=== PATIENT | male | born 1965 | race Caucasian/White ===

== ENCOUNTER 2022-05-25 16:55 | Emergency (ER) | payer OTHER, SELFPAY ==
[2022-05-25 17:38] VITALS: BP 154/88; PULSE 82; RESP 20; TEMP 36.4; O2SAT 96; BMI 46.1
--- NOTE | 2022-05-25 17:52 | XRR_ITS ---
PROCEDURE INFORMATION: Exam: XR Chest Exam date and time: 05/25/2022 8:20 PM Age: 56 years old Clinical indication: Shortness of breath; Additional info: SOB TECHNIQUE: Imaging protocol: Radiologic exam of the chest. Views: 1 view. COMPARISON: CT chest con [id number] 08/14/2018 2:10 PM FINDINGS: Lungs: Lungs are clear. Pleural spaces: Unremarkable. No pleural effusion. No pneumothorax. Heart/Mediastinum: Prominent right hilum. Possible mass or lymphadenopathy. Left hilum is normal. Heart size is normal. Bones/joints: Bones are unremarkable. XR/XR chest 1V portable [id number] IMPRESSION: 1. No pulmonary consolidation. 2. Prominent right hilum. Possible mass or lymphadenopathy. Recommend contrast-enhanced chest CT.
[2022-05-25 18:27] LABS: Basophils % 0.2 %; Eosinophils % 0.2 %; Hematocrit 42.7 % (42.0-52.0); Hemoglobin 13.6 g/dL (11.7-16.6); Lymphocytes # 1.5 10^3/uL (0.8-4.8); Lymphocytes % 15.7 %; Mean Corpuscular HGB Conc 31.9 g/dL (30.0-36.0); Mean Corpuscular Hemoglobin 29.1 pg (28.0-34.0); Mean Corpuscular Volume 91.2 fl (80-94); Mean Platelet Volume 8.6 fL (7.4-10.4); Monocytes # 0.5 10^3/uL (0.2-0.9); Monocytes % 5.2 %; Neutrophils # 7.64 10^3/uL (1.8-7.7); Neutrophils % 78.2 %; Nucleated Red Blood Cells % 0 %; Platelet Count 456 10^3/cmm (130-400); Red Blood Count 4.68 10^6/uL (4.1-5.3); Red Cell Distribution Width 12.7 % (12.1-15.1); White Blood Count 9.8 10^3/uL (4.0-10.0)
[2022-05-25 18:37] LABS: INR 1.05 (0.8-1.2)
[2022-05-25 18:39] LABS: D Dimer 2.29 ug/mIFEU (0-0.59)
[2022-05-25 18:53] LABS: Anion Gap 15.8 (5-19); Blood Urea Nitrogen 14 mg/dL (6-20); Calcium 9.7 mg/dL (8.5-10.5); Carbon Dioxide 27 mmol/L (22-29); Chloride 101 mmol/L (98-107); Glomerular Filtration Rate 100.7 mL/min (90-130); Glucose 123 mg/dL (65-115); NT Pro B Type Natriuretic Pept 15 pg/mL (0-125); Osmolality Calculated 292 mOsm/kg (285-295); Potassium 3.8 mmol/L (3.5-5.1); Sodium 140 mmol/L (136-145)
--- NOTE | 2022-05-25 20:35 | CTR_ITS ---
PROCEDURE INFORMATION: Exam: CTA Chest With Contrast Exam date and time: 05/25/2022 9:13 PM Age: 56 years old Clinical indication: Shortness of breath; Additional info: SOB, S/P covid 3 weeks ago TECHNIQUE: Imaging protocol: Computed tomographic angiography of the chest with contrast. 3D rendering (Not supervised by radiologist): MIP and/or 3D reconstructed images were created by the technologist. Radiation optimization: All CT scans at this facility use at least one of these dose optimization techniques: automated exposure control; mA and/or kV adjustment per patient size (includes targeted exams where dose is matched to clinical indication); or iterative reconstruction. Contrast material: OMNIPAQUE; Contrast volume: 100 ml; Contrast route: INTRAVENOUS (IV); COMPARISON: CT chest wo con [id number] 08/14/2018 2:10 PM RADIATION DOSE METRICS: Total DLP (mGy-cm): 555.97 FINDINGS: Pulmonary arteries: The pulmonary arteries are adequately opacified for evaluation to the subsegmental level. There is no filling defect to suggest embolism. Aorta: The aorta is unremarkable. There is no aneurysm. Lungs: There is a noncalcified pulmonary nodule in the right lower lobe measuring 2.8 x 2.2 cm. The nodule measured 6 mm on 08/14/2018. There is a new nodule in the right lower lobe measuring 7 mm on series 5, image 42. There are scattered nodules in the right upper lung. A right upper lobe nodule on series 5, image 19 measures 11 mm diameter. There is no consolidation. There is dependent atelectasis in the left lower lobe. No pulmonary nodule on the left. Pleural spaces: There is no pleural effusion or pneumothorax. Heart: Heart size is normal. There is no pericardial effusion. Lymph nodes: Enlarged right hilar and subcarinal lymph nodes. A conglomerate lymph node mass in the right hilum measures 4.6 x 3.1 cm on series 7, image 248. A subcarinal lymph node measures 5.0 x 3.6 cm. Diaphragm: There is a large left posterior diaphragmatic hernia containing fat. Intraperitoneal space: Visible structures in the upper abdomen are unremarkable. Bones/joints: Bones are unremarkable. Soft tissues: The extrathoracic soft tissues are unremarkable. CT/CT angio chest PE protcl [id number] IMPRESSION: 1. Multiple right pulmonary nodules are most likely neoplastic. Most of the nodules are new. There is a nodule in the right lower lobe which is markedly increased in size since 2018. Highly suspicious nodule(s). Consider non-emergent PET/CT, or tissue sampling.(Reference: Camron) 2. Right hilar and subcarinal lymphadenopathy. 3. No pulmonary embolism. 4. Incidental findings above. REFERENCES: Camron Husain, et al. Guidelines for Management of Incidental Pulmonary Nodules Detected on CT Images: From the Fleischner Society 2017. Radiology. 2017;284(1):228-243.
--- NOTE | 2022-05-25 20:50 | ED_ITS ---
HPI - SOB/Dyspnea General: Chief Complaint: Shortness of Breath/Dyspnea Stated Complaint: Abnormal labs, Low D-Dimer? Time Seen by Provider: 05/25/22 20:34 Source: patient Mode of arrival: ambulatory Limitations: no limitations History of Present Illness: HPI Narrative: 56-year-old male states he had COVID 2 to 3 weeks ago he states he is continue have some shortness of breath he saw his PCP a few days ago they did blood work they called him today to tell him his D-dimer was elevated and had him come to the ER to have a CT angio he states he had some mild dyspnea denies any pain currently denies any worsening improving factors. Associated symptoms: Reports chest pain; Deny abdominal pain, fever(s), nausea or vomiting Review of Systems Const: Denies: fever(s), chills, body aches or change in appetite Eyes: Denies: blurry vision or eye discomfort ENMT: Denies: throat pain or dental pain Card: Reports: chest pain Resp: Reports: dyspnea GI: Denies: abdominal pain, nausea, vomiting or diarrhea : Denies: dysuria Musc: Denies: neck pain or back pain Skin/Breast: Denies: rash Neuro: Denies: headache(s) Psych: Denies: depression Anderson/Lymph: Denies: easy bruising All/Imm: Denies: urticaria PFSH ED PFSH: Medical History (Updated 05/25/22 @ 21:55 by Julisa Kaufman MD) Hypertension Social History (Updated 05/25/22 @ 20:51 by Julisa Kaufman MD) Substance/Drug Use: never Physical Exam Const: COMMON NORMALS: no acute distress, patient oriented x3 and healthy appearing HENMT: COMMON NORMALS: normocephalic and atraumatic HEAD & SCALP: normocephalic and atraumatic Eye: COMMON NORMALS: Equal, round and reactive pupils present and EOMs intact bilaterally PUPIL: Yes Equal, round and reactive pupils present Neck/C-Spine: COMMON NORMALS: full ROM and supple Chest: COMMONS NORMALS: normal inspection of the chest and normal palpation of entire chest wall Resp: COMMON NORMALS: normal respiratory effort, No retractions, No use of accessory muscles and clear to auscultation bilaterally AUSCULTATION: clear to auscultation bilaterally Cardio: COMMON NORMALS: regular rate, regular rhythm and No murmurs present (C ardio) RATE: regular rate RHYTHM: regular rhythm GI: COMMON NORMALS: Normal to inspection, nondistended, normoactive bowel sounds present, Soft to palpation, non-tender and no masses PALPATION: Yes Soft to palpation Extremity: COMMON NORMALS: normal to inspection and full ROM Neuro: COMMON NORMALS: patient oriented x3, moves all extremities and no focal motor deficits Psych: COMMON NORMALS: mental status grossly normal, Normal thought process present and cooperative THOUGHT PROCESS: Normal thought process present Skin: COMMON NORMALS: no rashes or lesions noted and no wounds GENERAL SKIN EXAM: no rashes or lesions noted Course Vital Signs: Vital signs: Vital Signs Temperature 97.5 F L 05/25/22 17:38 Pulse Rate 82 05/25/22 17:38 Respiratory Rate 20 H 05/25/22 17:38 Blood Pressure 154/88 05/25/22 17:38 Pulse Oximetry 96 05/25/22 17:38 Oxygen Delivery Me thod 05/25/22 17:38 MDM - SOB/Dyspnea Medical Decision Making Patient presents here with dyspnea his CT showed no signs of PE he does have a lung nodules with concerns for metastatic cancer did inform him of this we will get him follow-up with pulmonology he is well-appearing here otherwise he is return if worsening. Lab Data : 05/25/22 18:16 05/25/22 18:16 Labs/Radiology: Radiology Impressions Chest X-Ray 05/25/22 17:52 IMPRESSION: 1. No pulmonary consolidation. 2. Prominent right hilum. Possible mass or lymphadenopathy. Recommend contrast-enhanced chest CT. Chest CTA 05/25/22 20:35 IMPRESSION: 1. Multiple right pulmonary nodules are most likely neoplastic. Most of the nodules are new. There is a nodule in the right lower lobe which is markedly increased in size since 2018. Highly suspicious nodule(s). Consider non-emergent PET/CT, or tissue sampling.(Reference: Camron) 2. Right hilar and subcarinal lymphadenopathy. 3. No pulmonary embolism. 4. Incidental findings above. REFERENCES: Camron Husain, et al. Guidelines for Management of Incidental Pulmonary Nodules Detected on CT Images: From the Fleischner Society 2017. Radiology. 2017;284(1):228-243. Laboratory Results WBC 9.8 10^3/uL (4.0-10.0) 05/25/22 18:16 RBC 4.68 10^6/uL (4.1-5.3) 05/25/22 18:16 Hgb 13.6 g/dL (11.7-16.6) 05/25/22 18:16 Hct 42.7 % (42.0-52.0) 05/25/22 18:16 MCV 91.2 fl (80-94) 05/25/22 18:16 MCH 29.1 pg (28.0-34.0) 05/25/22 18:16 MCHC 31.9 g/dL (30.0-36.0) 05/25/22 18:16 RDW 12.7 % (12.1-15.1) 05/25/22 18:16 Plt Count 456 10^3/cmm (130-400) H 05/25/22 18:16 MPV 8.6 fL (7.4-10.4) 05/25/22 18:16 Neut % (Auto) 78.2 % 05/25/22 18:16 Lymph % (Auto) 15.7 % 05/25/22 18:16 Spink % (Auto) 5.2 % 05/25/22 18:16 Eos % (Auto) 0.2 % 05/25/22 18:16 Baso % (Auto) 0.2 % 05/25/22 18:16 Neut # (Auto) 7.64 10^3/uL (1.8-7.7) 05/25/22 18:16 Lymph # (Auto) 1.5 10^3/uL (0.8-4.8) 05/25/22 18:16 Spink # (Auto) 0.5 10^3/uL (0.2-0.9) 05/25/22 18:16 Eos # (Auto) 0.0 10^3/uL (0.0-0.8) 05/25/22 18:16 Baso # (Auto) 0.0 10^3/uL (0.0-0.1) 05/25/22 18:16 Nucleated RBC % (auto) 0 % 05/25/22 18:16 Nucleated RBCs # 0.0 /100WBC 05/25/22 18:16 PT 14.00 SECONDS (12.1-14.9) 05/25/22 18:16 INR 1.05 (0.8-1.2) 05/25/22 18:16 D-Dimer 2.29 ug/mIFEU (0-0.59) H 05/25/22 18:16 Sodium 140 mmol/L (136-145) 05/25/22 18:16 Potassium 3.8 mmol/L (3.5-5.1) 05/25/22 18:16 Chloride 101 mmol/L (98-107) 05/25/22 18:16 Carbon Dioxide 27 mmol/L (22-29) 05/25/22 18:16 Anion Gap 15.8 (5-19) 05/25/22 18:16 BUN 14 mg/dL (6-20) 05/25/22 18:16 Creatinine 0.8 mg/dL (0.7-1.2) 05/25/22 18:16 GFR Calculation 100.7 mL/min (90-130) 05/25/22 18:16 Glucose 123 mg/dL (65-115) H 05/25/22 18:16 Calculated Osmolality 292 mOsm/kg (285-295) 05/25/22 18:16 Calcium 9.7 mg/dL (8.5-10.5) 05/25/22 18:16 NT-Pro-B Natriuret Pep 15 pg/mL (0-125) 05/25/22 18:16 Discharge Plan Discharge Patient Disposition: Home Clinical Impression: Shortness of breath, Pulmonary nodule Prescriptions: No Action metoprolol tartrate 25 mg tablet 12.5 mg PO BID Qty: 30 0RF Discharge Orders: Discharge ED (Routine); Ordered 05/25/22 Ordered By: Julisa Kaufman Referrals: Mary Hinton MD [Physician] - 1-3 days Marquis Reeves DO [Primary Care Provider] - Discharge Diet: Advance as tolerated Discharge Activity: Resume usual activity Coding Level of Care Code ED Cardiopulmonary Technologist for Chg Fwd Exam Comprehensive
[2022-05-25] MEDS: iohexol 350 mg/mL 100 mL Btl IV (21:24)
[2022-05-25 22:09] VITALS: BP 157/93; PULSE 63; RESP 18; O2SAT 98
--- NOTE | 2022-05-26 10:06 | DCPLANNER ---
Addendum entered by Miriam Flynn 06/07/22 15:43: Patient had a follow up appointment scheduled for 05.29.22 with pulmonology - patient did attend appointment. Original Note: cytology laboratory manager had message to schedule a follow up appointment for patient with pulmonology. cytology laboratory manager sent patients information to the front office staff at [facility]. Patients information will be printed and reviewed. Clinic will call patient with appointment information.
== END 2022-05-25 22:10 | disposition home or self-care (01) ==
PROVIDERS: Family Medicine; Emergency Provider Emergency Medicine; PCP Internal Medicine
DX: R06.02 Shortness of breath (principal); R91.1 Solitary pulmonary nodule; I10 Essential (primary) hypertension
CPT/HCPCS: 36415; 71045; 71275; 80048; 83880; 85025; 85378; 85610; 99285; Q9967

== ENCOUNTER 2022-05-30 07:55 | Day surgery (SDC) | payer OTHER, SELFPAY ==
[2022-05-29 12:18] VITALS: BMI 46.1
[2022-05-30] VITALS (9 sets, daily range): BP systolic 106–146; BP diastolic 59–93; PULSE 63–75; RESP 16–18; TEMP 36.1–36.6; O2SAT 94–100
[2022-05-30] MEDS: sodium chloride 0.9% 1,000 ML 30 ML IV (08:56)
--- NOTE | 2022-05-30 09:34 | ANES.PREANE2 ---
Pre-Anesthetic Assessment Height/Weight: Height 1.85 m Weight 158.757 kg Temp Pulse Resp BP Pulse Ox O2 Del Method 97 F L 75 18 146/93 96 05/30/22 08:26 05/30/22 08:26 05/30/22 08:26 05/30/22 08:26 05/30/22 08:26 05/30/22 08:26 Preop Diagnosis: Suspected lung cancer Operation Date: 05/30/22 09:25 Proposed Procedures p Bronchoscopy [id number],R91.8(Not Applicable) - Mary Hinton MD s Ebus(Not Applicable) - Mary Hinton MD Familial anesthetic complications: None Last intake: Intake Last Liquid Date 05/29/22 Last Liquid Time 23:30 Last Solid Date 05/29/22 Last Solid Time 05:30 Social Tobacco and No alcohol Exam alert, oriented x 3, clear to auscultation bilaterally and regular rate & rhythm Airway Mallampati: Class IV Dentition: chipped Pulmonary Shortness of Breath CV/HEM Hypertension Metabolic Morbid Obesity Anesthetic Plan ASA status: 2 Anesthesia: General Risk of > 500 ml blood loss (7ml/kg in children): No Medications/Allergies Home Medications Medication Instructions Recorded Confirmed Last Taken Type metoprolol tartrate 25 mg tablet 12.5 mg PO BID #30 tabs 01/18/21 05/29/22 05/30/22 Rx hydrocodone 5 mg-acetaminophen 325 1 tab PO Q8H PRN Pain 05/29/22 05/29/22 05/30/22 History mg tablet Allergies Allergy/AdvReac Type Severity Reaction Status Date / Time No Known Allergies Allergy Verified 05/29/22 12:13 Current Medications Generic Name Dose Route Start Last Admin Trade Name Freq PRN Reason Stop Dose Admin Sodium Chloride 1,000 mls @ 30 mls/hr 05/30/22 08:15 05/30/22 08:56 Sodium Chloride 0.9% IV 05/31/22 08:14 30 mls/hr .Q24H STEPHANE Administration PFSH Anesthesia Medical History Hypertension Surgical History Previous back surgery Social History Smoking and tobacco status: never smoked Data Anesthesia Cardiac Studies: No Data to Display
--- NOTE | 2022-05-30 09:49 | W.PM.OPSUD ---
Surgery/Procedure H&P Update DATE OF PROCEDURE: May 30, 2022 DATE H&P PERFORMED: 05/29/22 PREOP DIAGNOSIS: Suspected lung cancer PRIMARY INDICATION FOR PROCEDURE: Suspected lung cancer PLANNED PROCEDURE: Bronchoscopy with inspection of the airway, possible endobronchial biopsy, bronchoalveolar lavage, endobronchial ultrasound guided transbronchial needle aspiration of lymph nodes and control of bleeding. Operation Date: 05/30/22 09:25 Proposed Procedures p Bronchoscopy [id number],R91.8(Not Applicable) - Mary Hinton MD s Ebus(Not Applicable) - Mary Hinton MD
[2022-05-30] MEDS: lidocaine 1% INJ 20 mL XX (10:14)
--- NOTE | 2022-05-30 11:41 | P.OP_ITS ---
Operative Report Date of procedure: May 30, 2022 Pre-op diagnosis: Preop Diagnosis Suspected lung cancer Post-op diagnosis: Same Brief History: This is a 56-year-old gentleman was recently identified to have multiple pulmonary nodules and mediastinal hilar lymphadenopathy. He is coming in for bronchoscopic evaluation. Procedure: Name of the procedure: Bronchoscopy with inspection of the airway, endobronchial ultrasound-guided transbronchial needle aspiration of lymph nodes and control of bleeding. Indication: Pulmonary nodule, mediastinal and hilar lymphadenopathy Anesthesia: General anesthesia. Local anesthesia: The vocal cords, trachea, chase in the right and left mainstem bronchi were anesthetized with 1% lidocaine, 7 mL. Description of the procedure: The procedure was explained to the patient and the consent was obtained. The patient was brought to the OR. The patient underwent laryngeal mask airway placement for general anesthesia. Following induction of general anesthesia, the bronchoscope was advanced through the ET tube. The laryngeal inlet was edematous. The vocal cords were normal. The vocal cords were anesthetized with 1% lidocaine. 3 mL of lidocaine was used. Bronchoscope was introduced through the vocal cords under direct visualization. The upper and lower trachea are normal. The trachea, chase and right and left mainstem bronchi are anesthetized with 1% lidocaine. A total of 4 mL was used. The chase was splayed. In a systematic manner bilateral bronchial tree was then examined. The bronchoscope was advanced into the left mainstem bronchus. The left upper lobe, lingula and left lower lobe bronchi were examined up to the third subsegmental level and no abnormalities were identified. The bronchoscope was then introduced into the right mainstem bronchus. The right upper lobe, right middle lobe and right lower lobe bronchi were examined up to the third subsegmental level and no abnormalities were identified. There was mucus throughout the airways. The endobronchial ultrasound was introduced through the LMA. Significant mediastinal and hilar lymphadenopathy was identified with the ultrasound. Fine- needle aspiration was performed from station 7 lymph node. Samples: 1. The transbronchial biopsies are sent for histopathology. Additionally it was sent for RPMI. Complications: There was no immediate complications.
--- NOTE | 2022-05-30 12:50 | ANE.PACU2 ---
Inpatient post-anesthesia follow up: Airway intact: Yes Vital signs: Temperature 97.6 F Pulse Rate 70 Respiratory Rate 16 Blood Pressure 111/65 Pulse Oximetry 97 Oxygen Delivery Me thod Room Air Oxygen Flow Rate Fraction of Inspir ed Oxygen Hydration adequate: Yes Nausea and vomiting: No Pain level: 1 Mental status: Baseline
[2022-05-31 11:09] LABS: Leukemia Profile (BBPL) See Report; Lymphoma Profile (BBPL) See Report
[2022-06-06 08:16] LABS: PD-L1 (Clone 22C3) by IHC BBPL See Report
[2022-06-13 06:56] LABS: BRAF PCR Mutation See Report
== END 2022-05-30 11:45 | disposition home or self-care (01) ==
PROVIDERS: PCP Internal Medicine; Visit Provider Internal Medicine Critical Care Medicine
PROC: 0BJ08ZZ Inspection of Tracheobronchial Tree, Via Natural or Artificial Opening Endoscopic (ICD-10-PCS; CPT 31622; principal; 2022-05-30 09:15)
PROC: BB4BZZZ Ultrasonography of Pleura (ICD-10-PCS; 2022-05-30 09:15)
DX: C34.90 Malignant neoplasm of unspecified part of unspecified bronchus or lung (principal); I10 Essential (primary) hypertension; E66.01 Morbid (severe) obesity due to excess calories; Z68.42 Body mass index [BMI] 45.0-49.9, adult
CPT/HCPCS: 31652; 80503; 81210; 88184; 88185; 88305; 88341; 88342; J2704; J3010; J7030

== ENCOUNTER 2022-06-16 08:30 | Oncology outpatient (recurring) (ONCR) | payer OTHER, SELFPAY | END 2022-06-19 23:59 | disposition home or self-care (01) | PROVIDERS: PCP Internal Medicine; Visit Provider Internal Medicine Medical Oncology | DX: C43.9 Malignant melanoma of skin, unspecified (principal) | CPT/HCPCS: 36415 ==

== ENCOUNTER 2022-06-26 10:18 | Day surgery (SDC) | payer OTHER, SELFPAY ==
[2022-06-23 15:32] VITALS: BMI 46.1
[2022-06-26] VITALS (8 sets, daily range): BP systolic 127–138; BP diastolic 71–87; PULSE 84–99; RESP 17–18; TEMP 36.8–37.4; O2SAT 93–99
--- NOTE | 2022-06-26 | SCC_ITS ---
Procedure done: 1. Placement of PowerPort via right internal jugular vein 2. Fluoroscopic guidance and interpretation for placement of catheter 3. Ultrasound guidance to access the right internal jugular vein 38 seconds of fluoroscopic guidance, for a cumulative dose of 17.2 mGy, was provided to Dr. Wright by the radiology department. C-arm images of the chest were saved for the patient's permanent record. [facility]
--- NOTE | 2022-06-26 10:34 | SC_ITS ---
WS: [id number] INTRAOPERATIVE TECHNIQUE: 4 Spot fluoroscopic images for intraoperative purposes. FLUOROSCOPY TIME: 37.5 seconds CLINICAL INFORMATION: Powerport Placement COMPARISON: None. FINDINGS: RIGHT Port-A-Cath with tip in mid to distal SVC. No visualized pneumothorax. SC/C-arm FL for CVA [id number] IMPRESSION: Images obtained for intraoperative purposes.
[2022-06-26] MEDS: sodium chloride 0.9% 1,000 ML 30 ML IV (10:59)
--- NOTE | 2022-06-26 11:54 | W.PM.OPSUD ---
Surgery/Procedure H&P Update DATE OF PROCEDURE: June 26, 2022 DATE H&P PERFORMED: 06/22/22 H&P UPDATE INFORMATION: I have reviewed H&P completed within last 30 days, I have examined patient prior to procedure and No changes to prior documentation PREOP DIAGNOSIS: Metastatic melanoma PRIMARY INDICATION FOR PROCEDURE: The same PLANNED PROCEDURE: Operation Date: 06/26/22 12:00 Proposed Procedures p Portacath Placement [id number],C43.9(Not Applicable) - Dylon Wright MD
--- NOTE | 2022-06-26 12:02 | ANES.PREANE2 ---
Pre-Anesthetic Assessment Height/Weight: Height 1.85 m Weight 158.757 kg Temp Pulse Resp BP Pulse Ox O2 Del Method 98.8 F 84 18 138/77 98 06/26/22 10:43 06/26/22 10:43 06/26/22 10:43 06/26/22 10:43 06/26/22 10:43 06/26/22 10:44 Preop Diagnosis: Metastatic melanoma Operation Date: 06/26/22 12:00 Proposed Procedures p Portacath Placement [id number],C43.9(Not Applicable) - Dylon Wright MD Familial anesthetic complications: none Was Beta Zina taken within 24 hours: N/A Was Clonidine taken within 24 hours: N/A Last intake: Intake Last Liquid Date 06/25/22 Last Liquid Time 22:30 Last Solid Date 06/25/22 Last Solid Time 12:00 Last Intake: 22:30 Social No alcohol and No tobacco Exam alert, oriented x 3, clear to auscultation bilaterally and regular rate & rhythm Airway Submandibular: within normal limits Cervical ROM: within normal limits Mallampati: Class III Dentition: full (loose lower front) Pulmonary Exertional Dyspnea lung CA CV/HEM Hypertension None reported Hepatic None reported GI Gastroesophageal Reflux Disease (controlled) Metabolic Morbid Obesity Musc/skel Lower Back Pain and Osteoarthritis/DJD Neuropsych None reported Anesthetic Plan ASA status: 3 Anesthesia: MAC Risk of > 500 ml blood loss (7ml/kg in children): No Medications/Allergies Home Medications Medication Instructions Recorded Confirmed Last Taken Type hydrocodone 5 mg-acetaminophen 325 1 tab PO Q8H PRN Pain 05/29/22 06/26/22 06/26/22 History mg tablet olmesartan 40 1 tab PO DAILY 05/30/22 06/26/22 06/25/22 History mg-hydrochlorothiazide 25 mg tablet (Benicar HCT) pantoprazole 20 mg tablet,delayed 20 mg PO DAILY 06/22/22 06/23/22 06/26/22 History release Allergies Allergy/AdvReac Type Severity Reaction Status Date / Time No Known Allergies Allergy Verified 06/22/22 13:03 Current Medications Generic Name Dose Route Start Last Admin Trade Name Freq PRN Reason Stop Dose Admin Sodium Chloride 1,000 mls @ 30 mls/hr 06/26/22 10:45 06/26/22 10:59 Sodium Chloride 0.9% IV 06/27/22 10:44 30 mls/hr .Q24H STEPHANE Administration PFSH Anesthesia Medical History Bronchitis Degenerative joint disease of spine Hypertension Metastatic melanoma Surgical History History of bronchoscopy (05/30/22) Bronchoscopy/EBUS History of lumbar laminectomy (1996) Family History Father Cancer Lung Lung disease Lung cancer Suicide Sister Cancer Brother Cancer Colon and liver Mother Hyperlipidemia Hypertension Dementia Denies family history of Diabetes CAD (coronary artery disease) Clotting disorder Psychiatric illness Chronic kidney disease (CKD) Anesthesia complication Bleeding disorder Stroke Social History Smoking and tobacco status: never smoked Alcohol intake: never Data Anesthesia Cardiac Studies: No Data to Display
[2022-06-26] MEDS: ceFAZolin 2,000 MG in sodium chloride 0.9% (plus) 50 ML 100 MG IV (12:35)
[2022-06-26] MEDS: lidocaine 1% INJ 20 mL SUBCUT (13:05)
[2022-06-26] MEDS: heparin, porcine 1,000 unit/mL INJ 10 mL 10000 UNIT IRRIGATION (13:05)
--- NOTE | 2022-06-26 13:38 | PM.OP ---
Operative Report Date of procedure: June 26, 2022 Pre-op diagnosis: Preop Diagnosis Metastatic melanoma Post-op diagnosis: The same Procedure done: 1. Placement of PowerPort via right internal jugular vein 2. Fluoroscopic guidance and interpretation for placement of catheter 3. Ultrasound guidance to access the right internal jugular vein Surgeon: Dylon Wright MD Mentally Impaired Teacher: lead nuclear medicine technologist Alvera Circulating nurse Radha Wilcox Anesthesia: MAC (AIRCRAFT OR[employer]NCE SYSTEMS MECHANIC Will Smart) Estimated blood loss (mL): 10 Procedure: U/S Guided IJ access Patient was identified in the holding area and taken to the operative room and placed in supine position IV propofol was given by the anesthesia provider ,both arms were tucked,Time-out was done verifying the patient's name/date of /planned procedure and destination after the procedure, all were in agreement. SCDs confirmed to be functioning, preoperative antibiotics administered per protocol, and beta laila protocol was confirmed, appropriate positioning of the patient was done by me. Medications were reviewed to assess for anticoagulant usage. Risks and benefits and prevention of central line associated blood stream infection (CLABSI) were discussed with the patient/CPOA, and a consent was obtained. Monitors were in place and monitored throughout the procedure. All necessary supplies were available prior to start. Hand hygiene was completed prior to starting. Maximum barrier technique was utilized including a sterile gown, sterile gloves with a hat and mask. Site was was prepped with [chlorhexidine] and a full body drape was placed. 5 mL of 2% lidocaine was injected into the skin with a 25 gauge needle. Prep& drape was done under the usual sterile technique, lidocaine 2% was injected at the site of the stick, started by right Internal Juglar vein stick that retrieved venous blood was obtained from the first stick under ultrasound guidance and there was no evidence of intraluminal thrombosis, interpretation was done by me through the whole entire procedure, a guidewire was then threaded and under the guidance of fluoroscopy position was confirmed to be in the IVC and my interpretation, there was no PVC changes, at that point the guidewire was secured to the drapes with a hemostat and the needle was taken out. Attention was then deviated towards creation of a pocket for the port were lidocaine 2% was injected using an 15 blade knife skin incision was created at the right upper Chest ,dissection using the Bovie to create a pocket for the PowerPort to be accommodated, hemostasis was secured, after the port being appropriately flushed it was inserted into the pocket and a tunneler was used to accommodate the catheter of the port cath to be delivered through the incision first created at the site of the stick, yet I had to create a transit incision at the root of the neck at the right side to the patient difficult anatomy , and then I was able to retrieve the catheter at the index site of the stick. At that point under fluoroscopy an estimated length was measured for the catheter and was cut at the designed level, followed by that a dilator with the sheath introduced onto the guidewire the dilator and the wire were retrieved and the catheter of the port was introduced via the sheath where it was peeled off and the catheter maintained to be in the SVC that was confirmed with fluoroscopy, and the fluoroscopy interpretation was done by me throughout the entire procedure. Multiple flushes of the port was done by diluted heparin and I was able to retrieve without difficulty venous blood as well as appropriate flushing was achieved. The port was kept in its pocket, 3-0 Vicryl deep subdermal interrupted sutures, skin was then closed by 4-0 Monocryl as subcuticular closure. The port was appropriately flushed with heparin and venous blood was withdrawn without difficulty The stick site was closed by 4-0 Monocryl and Dermabond was used followed by dressing. Patient tolerated the procedure well was taken to the recovery area Count was correct at the end of the procedure I was present for the whole entire procedure
--- NOTE | 2022-06-26 13:40 | XRR_ITS ---
PROCEDURE INFORMATION: Exam: XR Chest Exam date and time: 06/26/2022 2:56 PM Age: 56 years old Clinical indication: Device placement; Other: Right internal jugular vein powerport; Prior surgery; Surgery date: Post-operative (0-2 days); Additional info: Status postplacement right internal jugular vein powerport TECHNIQUE: Imaging protocol: Radiologic exam of the chest. Views: 1 view. COMPARISON: CR (CHEST, ) 05/25/2022 8:20 PM FINDINGS: Tubes, catheters and devices: A right central line extends into the SVC Lungs: Unremarkabl prominent right pulmonary artery in the right hilum. Pleural spaces: Unremarkable. No pleural effusion. No pneumothorax. Heart/Mediastinum: Unremarkable. No cardiomegaly. Bones/joints: Unremarkable. Other findings: Otherwise no acute findings are noted. XR/XR chest 1V portable [id number] IMPRESSION: 1. No acute findings. 2. Right central line is in the SVC.
--- NOTE | 2022-06-26 14:52 | XRR_ITS ---
PROCEDURE INFORMATION: Exam: XR Chest Exam date and time: 06/26/2022 3:56 PM Age: 56 years old Clinical indication: Device placement; Other: Right internal jugular vein powerport; Prior surgery; Surgery date: Post-operative (0-2 days); Additional info: Status post placement right internal jugular vein powerport TECHNIQUE: Imaging protocol: Radiologic exam of the chest. Views: 1 view. COMPARISON: CR XR chest 1V portable [id number] 06/26/2022 2:56 PM FINDINGS: Tubes, catheters and devices: Termination of med port catheter in the distal superior vena cava. Lungs: Decreased conspicuity of CT detected lung nodules. Interstitial prominence and mild basilar airspace disease. Pleural spaces: Nonvisualization of the inferior thorax and costophrenic angles. No significant pneumothorax in the visualized chest. Heart/Mediastinum: Right hilar enlargement in association with hilar and mediastinal lymphadenopathy. Bones/joints: Unremarkable. XR/XR chest 1V portable [id number] IMPRESSION: 1. Termination of med port catheter in the distal superior vena cava. 2. Right hilar enlargement in association with hilar and mediastinal lymphadenopathy.
--- NOTE | 2022-06-26 16:44 | ANE.PACU2 ---
Inpatient post-anesthesia follow up: Airway intact: Yes Vital signs: Temperature 99.2 F Pulse Rate 96 Respiratory Rate 18 Blood Pressure 129/77 Pulse Oximetry 96 Oxygen Delivery Me thod Room Air Oxygen Flow Rate Fraction of Inspir ed Oxygen Hydration adequate: Yes Nausea and vomiting: No Pain level: 2 Mental status: Baseline
== END 2022-06-26 15:24 | disposition home or self-care (01) ==
PROVIDERS: PCP Internal Medicine; Visit Provider Surgery
PROC: (CPT 36561; principal; 2022-06-26 12:00)
DX: C43.9 Malignant melanoma of skin, unspecified (principal); I10 Essential (primary) hypertension; K21.9 Gastro-esophageal reflux disease without esophagitis; E66.01 Morbid (severe) obesity due to excess calories; Z68.42 Body mass index [BMI] 45.0-49.9, adult
CPT/HCPCS: 36561; 71045; 77001; C1788; J0690; J1644; J2704; J3010; J7030

== ENCOUNTER 2022-06-29 09:25 | Oncology outpatient (recurring) (ONCR) | payer OTHER, SELFPAY ==
[2022-06-29 10:05] LABS: Basophils % 0.2 %; Eosinophils # 0.1 10^3/uL (0.0-0.8); Eosinophils % 0.5 %; Hematocrit 34.1 % (42.0-52.0); Hemoglobin 10.8 g/dL (11.7-16.6); Lymphocytes # 1.8 10^3/uL (0.8-4.8); Lymphocytes % 18.7 %; Mean Corpuscular HGB Conc 31.7 g/dL (30.0-36.0); Mean Corpuscular Hemoglobin 28.1 pg (28.0-34.0); Mean Corpuscular Volume 88.6 fl (80-94); Monocytes # 0.9 10^3/uL (0.2-0.9); Monocytes % 9.5 %; Neutrophils # 6.78 10^3/uL (1.8-7.7); Neutrophils % 70.7 %; Nucleated Red Blood Cells % 0 %; Platelet Count 452 10^3/cmm (130-400); Red Blood Count 3.85 10^6/uL (4.1-5.3); Red Cell Distribution Width 13.2 % (12.1-15.1); White Blood Count 9.6 10^3/uL (4.0-10.0)
[2022-06-29 11:10] LABS: Alanine Aminotransferase 31 U/L (0-41); Albumin Level 3.4 g/dL (3.5-5.2); Alkaline Phosphatase 87 U/L (40-130); Anion Gap 16.3 (5-19); Aspartate Amino Transferase 29 U/L (0-40); Blood Urea Nitrogen 19 mg/dL (6-20); Calcium 9.6 mg/dL (8.5-10.5); Carbon Dioxide 24 mmol/L (22-29); Chloride 98 mmol/L (98-107); Globulin 3.4 g/dL (1.3-4.6); Glomerular Filtration Rate 63.1 mL/min (90-130); Glucose 121 mg/dL (65-115); Immunoglobulin IGG 762 mg/dL (700-1600); Osmolality Calculated 284 mOsm/kg (285-295); Potassium 3.3 mmol/L (3.5-5.1); Sodium 135 mmol/L (136-145); Thyroid Stimulating Hormone 1.21 uIU/mL (0.27-4.20); Total Bilirubin 0.7 mg/dL (0.15-1.2); Total Protein 6.8 g/dL (6.6-8.7)
[2022-06-29 11:29] LABS: Hepatitis A Antibody IgM Non-Reactive (Nonreactive); Hepatitis B Core AB, Total Non-Reactive (Nonreactive); Hepatitis B Surface AB 3.5 (11.5-1000); Hepatitis C Virus Antibody Non-Reactive (Nonreactive)
[2022-06-29] MEDS: sodium chloride 0.9% 250 ML 100 ML IV (11:44)
[2022-06-29 11:59] LABS: Hepatitis B Surface Antigen Non-Reactive (Nonreactive)
[2022-06-29] MEDS: nivo-relat 12mg-4mg/mL 40 ML in sodium chloride 0.9% 250 ML 580 ML IV (12:05)
[2022-06-29 12:49] VITALS: BP 114/77; PULSE 75; TEMP 36.7; O2SAT 99
== END 2022-06-30 09:22 | disposition home or self-care (01) ==
PROVIDERS: PCP Internal Medicine; Visit Provider Internal Medicine Medical Oncology
DX: Z51.12 Encounter for antineoplastic immunotherapy (principal); C43.9 Malignant melanoma of skin, unspecified; R91.1 Solitary pulmonary nodule; R59.0 Localized enlarged lymph nodes; Z79.899 Other long term (current) drug therapy
CPT/HCPCS: 80053; 82784; 84443; 85025; 86705; 86706; 86709; 86803; 87340; 96413; J7050; J9298

== ENCOUNTER 2022-06-30 07:38 | Outpatient (CLI) | payer OTHER, SELFPAY ==
--- NOTE | 2022-06-30 07:15 | MR_ITS ---
WS: [id number] MRI HEAD WITH CONTRAST TECHNIQUE: Sagittal T1, T2 axial, T2 axial FLAIR, axial susceptibility weighted imaging, axial diffus ion weighted images, and coronal T2 images were obtained. Pre and post-T1 axial and post T1 coronal i mages. ADC and FSPGR images. CLINICAL INFORMATION: Staging COMPARISON: None. FINDINGS: No evidence of restricted diffusion to suggest acute ischemia. Ventricular system and basal cisterns are patent. Enhancing small metastatic lesions in the mesial LEFT temporal lobe measuring 1.4 x 0.7 x 1.0 cm AP by transverse by craniocaudal. Small amount of associated hemosiderin. Small amount of str uma T2 hyperintensity. Enhancing metastatic lesion abuts the dura and cavernous sinus. No convincing evidence of cavernous sinus invasion. Normal posterior fossa. Normal vascular flow voids at the skull base. Axial fluid collections. No evidence of mass or mass effect. Paranasal sinuses and mastoid air cells are well aerated. Normal optic chiasm and pituitary infundibulum. Mild parenchymal volume loss. MR/MR head wo/w con [id number] IMPRESSION: 1. Enhancing metastatic lesion in the mesial LEFT temporal lobe measuring 1.4 x 0.7 x 1.0 cm AP by transverse by craniocaudal. Small amount of surrounding T2 hyperintensity and associated hemosiderin. 2. This directly abuts the cavernous sinus. No convincing evidence of cavernou s sinus invasion. 3. No other foci of enhancing intracranial metastatic disease.
[2022-06-30] MEDS: gadobenate dimeglumine 20 mL vial IV (08:33)
== END 2022-06-30 07:39 | disposition home or self-care (01) ==
PROVIDERS: PCP Internal Medicine; Visit Provider Internal Medicine Medical Oncology
DX: C43.9 Malignant melanoma of skin, unspecified (principal)
CPT/HCPCS: 70553; A9577

== ENCOUNTER 2022-07-05 12:48 | Oncology outpatient (recurring) (ONCR) | payer OTHER, SELFPAY ==
[2022-07-05 13:47] LABS: Basophils % 0.2 %; Eosinophils # 0.1 10^3/uL (0.0-0.8); Eosinophils % 0.7 %; Hematocrit 32.6 % (42.0-52.0); Hemoglobin 10.3 g/dL (11.7-16.6); Lymphocytes # 1.9 10^3/uL (0.8-4.8); Lymphocytes % 14.2 %; Mean Corpuscular HGB Conc 31.6 g/dL (30.0-36.0); Mean Corpuscular Hemoglobin 28.1 pg (28.0-34.0); Mean Corpuscular Volume 88.8 fl (80-94); Mean Platelet Volume 8.8 fL (7.4-10.4); Monocytes # 1.5 10^3/uL (0.2-0.9); Monocytes % 11.8 %; Neutrophils # 9.48 10^3/uL (1.8-7.7); Neutrophils % 72.6 %; Nucleated Red Blood Cells % 0 %; Platelet Count 383 10^3/cmm (130-400); Red Blood Count 3.67 10^6/uL (4.1-5.3)
[2022-07-05 14:25] LABS: Alanine Aminotransferase 24 U/L (0-41); Albumin Level 3.4 g/dL (3.5-5.2); Alkaline Phosphatase 91 U/L (40-130); Anion Gap 15.1 (5-19); Aspartate Amino Transferase 21 U/L (0-40); Blood Urea Nitrogen 15 mg/dL (6-20); Calcium 9.3 mg/dL (8.5-10.5); Carbon Dioxide 27 mmol/L (22-29); Chloride 98 mmol/L (98-107); Globulin 3.4 g/dL (1.3-4.6); Glomerular Filtration Rate 69.8 mL/min (90-130); Glucose 120 mg/dL (65-115); Osmolality Calculated 286 mOsm/kg (285-295); Potassium 3.1 mmol/L (3.5-5.1); Sodium 137 mmol/L (136-145); Thyroid Stimulating Hormone 1.27 uIU/mL (0.27-4.20); Total Bilirubin 0.9 mg/dL (0.15-1.2); Total Protein 6.8 g/dL (6.6-8.7)
--- NOTE | 2022-07-05 16:45 | XR_ITS ---
WS: [id number] Exam: XR abdomen min 2V [id number] Date/Time of Exam: 07/05/2022 4:45 PM Reason For Exam: Nausea/vomiting No bowel obstruction or free air. Visualized organ margins are unremarkable. 3.6 cm nodular density d ensity visualized over the right upper abdomen unchanged from prior imaging exams. This apparently re presents a nodule in the right lower lobe. A smaller 1 cm nodule is noted more medial. Bony structure s are unremarkable. XR/XR abdomen min 2V [id number] IMPRESSION: 1. No acute abdominal finding. 2. Nodular densities projected over the upper right abdomen apparently represen t pulmonary nodules in the right lower lobe.
== END 2022-07-19 23:59 | disposition home or self-care (01) ==
PROVIDERS: Internal Medicine Hematology & Oncology; PCP Internal Medicine; Visit Provider Internal Medicine Medical Oncology
DX: C43.9 Malignant melanoma of skin, unspecified (principal)
CPT/HCPCS: 36591; 74019; 80053; 84443; 85025

== ENCOUNTER 2022-08-10 10:17 | Outpatient (CLI) | payer OTHER, SELFPAY ==
[2022-08-10] MEDS: iohexol 350 mg/mL 500 mL Btl (per mL) IV (10:47)
[2022-08-10] MEDS: iohexol 350 mg/mL 500 mL Btl (per mL) PO (10:48)
--- NOTE | 2022-08-10 17:00 | CT_ITS ---
WS: [id number] CT CHEST, ABDOMEN AND PELVIS WITH CONTRAST. HISTORY: Restaging TECHNIQUE: Contiguous 5 mm axial imaging performed through the chest, abdomen and pelvis with IV cont rast, oral contrast has been provided. Coronal and sagittal reformats chest. Coronal and sagittal ref ormats through the abdomen and pelvis. All CT scans at [facility] [place] use at least one of these d ose optimization techniques: automated exposure control; mA and/or kV adjustment per patient size (in cludes targeted exams where dose is matched to clinical indication); or iterative reconstruction. CONTRAST: Omnipaque 350; 95 mL IV. DLP: 1898.77 mGy.cm COMPARISON: CT chest 05/25/2022, PET/CT 06/08/[address]: RIGHT lower lobe well-circumscribed mass abuts the pleura measuring 3.1 x 2.2 cm. Pulmonary mass has increased slightly in size since 05/25/2022 and PET/CT of 06/10/2022. Numerous pulmonary nod ules are also reidentified. Some of the nodules have very slightly decreased in size while others hav e remained the same or slightly increased in size. Enlarged RIGHT hilar and subcarinal lymph nodes. S ubcarinal lymph node measures 2.8 x 3.5 cm. RIGHT hilar lymph node measures 2.2 cm. The lymph node bu rden has slightly decreased in size since 05/25/2022. Normal thoracic aorta. Normal pulmonary enhancem ent. No effusion. Abdomen CT: Numerous metastatic lesions present within the liver. Innumerable masses ranging from a f ew millimeters in size to 36 mm. As compared to the prior PET/CT there probably has been an increase in the extent of metastatic lesions. Gallbladder is negative. Normal pancreas and adrenal glands. Nor mal spleen. No obstruction. Normal aorta. Large cluster of lymph nodes near the celiac axis and precaval. Cluster measures at least 6.4 x 4.5 c m. There is slight mass effect upon the duodenum and also extends to abut the gallbladder. This lymph node clusters new since the prior studies. No GI tract obstruction. Pelvic CT: No free fluid or adenopathy within the pelvis. No inguinal lymph nodes. A few very subtle sclerotic lesions in the RIGHT ilium. Patient has known osseous metastatic disease in the RIGHT femur and RIGHT humerus. These lesions are not evident on this imaging study. There are CT/CT chest abd pel w con* IMPRESSION: 1. Increase in size of the RIGHT lower lobe pulmonary mass consistent with a m etastatic lesion. There are additional pulmonary nodules throughout the lungs. Some of these have remained stable in size while others have slightly decreased and others have increased in size. 2. RIGHT hilar and subcarinal lymphadenopathy. Lymph node burden has decreased in size since 05/25/2022. 3. Extensive metastatic lesions throughout the liver. Known metastatic lesions . Visually the lesions have probably increased in extent. Difficult to compare with the PET/CT. 4. New large cluster of lymphadenopathy in the celiac axis and precaval measur ing 6.4 x 4.5 cm. 5. Patient has known metastatic bone disease as seen on a prior PET/CT. These lesions are not included on this examination. Very subtle sclerotic areas in th e RIGHT ilium could potentially represent very early additional bone metastasis .
== END 2022-08-10 10:18 | disposition home or self-care (01) ==
LOC: RAD 10:19
PROVIDERS: PCP Internal Medicine; Visit Provider Internal Medicine Medical Oncology
DX: C43.9 Malignant melanoma of skin, unspecified (principal); R91.8 Other nonspecific abnormal finding of lung field; K76.9 Liver disease, unspecified
CPT/HCPCS: 71260; 74177; Q9967

== ENCOUNTER 2022-08-14 11:45 | Oncology outpatient (recurring) (ONCR) | payer OTHER, SELFPAY ==
[2022-07-27 10:04] VITALS: BMI 43.7
[2022-07-27 10:12] LABS: Basophils % 0.4 %; Eosinophils # 0.2 10^3/uL (0.0-0.8); Eosinophils % 1.8 %; Hematocrit 33.8 % (42.0-52.0); Hemoglobin 10.5 g/dL (11.7-16.6); Lymphocytes # 2.5 10^3/uL (0.8-4.8); Lymphocytes % 24.5 %; Mean Corpuscular HGB Conc 31.1 g/dL (30.0-36.0); Mean Corpuscular Hemoglobin 27.3 pg (28.0-34.0); Mean Platelet Volume 8.5 fL (7.4-10.4); Monocytes % 9.5 %; Neutrophils # 6.39 10^3/uL (1.8-7.7); Neutrophils % 63.4 %; Nucleated Red Blood Cells % 0 %; Platelet Count 430 10^3/cmm (130-400); Red Blood Count 3.84 10^6/uL (4.1-5.3); Red Cell Distribution Width 15.2 % (12.1-15.1); White Blood Count 10.1 10^3/uL (4.0-10.0)
[2022-07-27 10:51] LABS: Alanine Aminotransferase 25 U/L (0-41); Albumin Level 3.6 g/dL (3.5-5.2); Alkaline Phosphatase 89 U/L (40-130); Anion Gap 13.9 (5-19); Aspartate Amino Transferase 30 U/L (0-40); Blood Urea Nitrogen 22 mg/dL (6-20); Calcium 9.7 mg/dL (8.5-10.5); Carbon Dioxide 27 mmol/L (22-29); Chloride 100 mmol/L (98-107); Globulin 2.8 g/dL (1.3-4.6); Glomerular Filtration Rate 69.8 mL/min (90-130); Glucose 92 mg/dL (65-115); Osmolality Calculated 289 mOsm/kg (285-295); Sodium 138 mmol/L (136-145); Thyroid Stimulating Hormone 1.25 uIU/mL (0.27-4.20); Total Bilirubin 0.5 mg/dL (0.15-1.2); Total Protein 6.4 g/dL (6.6-8.7)
[2022-07-27 10:54] LABS: Potassium 2.9 mmol/L (3.5-5.1)
[2022-07-27] MEDS: sodium chloride 0.9% 250 ML 50 ML IV (11:18)
[2022-07-27] MEDS: potassium chloride premix 100 ML 25 MEQ IV (11:21)
[2022-07-27] MEDS: nivo-relat 12mg-4mg/mL 40 ML in sodium chloride 0.9% 250 ML 580 ML IV (14:40)
[2022-07-27 15:22] VITALS: BP 127/86; PULSE 70; RESP 18; TEMP 35.8; O2SAT 99
--- NOTE | 2022-08-14 11:45 | MR_ITS ---
WS: [id number] MRI HEAD WITH CONTRAST TECHNIQUE: Sagittal T1, T2 axial, T2 axial FLAIR, axial susceptibility weighted imaging, axial diffus ion weighted images, and coronal T2 images were obtained. Pre and post-T1 axial and post T1 coronal i mages. ADC and FSPGR images. CLINICAL INFORMATION: Restaging COMPARISON: MRI June 30, 2022 FINDINGS: No evidence of restricted diffusion to suggest acute ischemia. Enhancing lesion in the mesial LEFT te mporal lobe with associated subacute blood products and hemosiderin. This appears increased in size c ompared to previous with peripheral enhancement measuring 3.1 x 2.2 x 2.2 CM. Previously this measure d 1.4 x 0.7 x 1.0 cm. Surrounding T2 signal abnormality has progressed compared to previous. Mass eff ect on the LEFT temporal horn. Mild mass effect on the LEFT midbrain. Mild mass effect on the LEFT la teral ventricle. No hydrocephalus. Minimal LEFT to RIGHT midline shift measuring 3 mm. Suprasellar ci baptiste remains patent. Normal optic chiasm and pituitary infundibulum. Normal cavernous sinuses and Meckel's cave remain pat ent. LEFT temporal lesion abuts the LEFT cavernous sinus and Meckel's cave which remain patent. Jeri l visualized dural venous sinuses. Normal posterior fossa. Normal vascular flow voids at the skull base. No extra-axial fluid collection s. Paranasal sinuses are well aerated. MR/MR head wo/w con [id number] IMPRESSION: 1. Peripheral enhancing lesion with subacute and chronic blood products in the mesial LEFT temporal lobe progressed compared to previous. This measures appro ximately 3.1 x 2.2 x 2.2 cm with increased central necrosis. 2. Localized mass effect with mass effect on the LEFT temporal lobe. Surroundi ng edema has significantly increased in the LEFT temporal lobe with mild mass e ffect on the LEFT midbrain. Basilar cisterns remain patent 3. Mild mass effect in the LEFT lateral ventricle with LEFT to RIGHT midline s hift measuring 3 mm. No hydrocephalus. 4. No other enhancing lesions.
[2022-08-14] MEDS: gadobenate dimeglumine 20 mL vial IV (12:55)
== END 2022-08-19 23:59 | disposition home or self-care (01) ==
LOC: RAD 08-15 → ONCMED 08-21 11:13
PROVIDERS: Internal Medicine Hematology & Oncology; PCP Internal Medicine; Visit Provider Internal Medicine Medical Oncology
DX: C79.31 Secondary malignant neoplasm of brain (principal)
CPT/HCPCS: 70553; 80053; 84443; 85025; 96366; 96367; 96413; A9577; J3480; J7050; J9298

== ENCOUNTER 2022-08-28 12:52 | Oncology outpatient (recurring) (ONCR) | payer OTHER, SELFPAY ==
[2022-08-24 09:38] LABS: Basophils % 0.7 %; Eosinophils # 0.2 10^3/uL (0.0-0.8); Eosinophils % 2.5 %; Hematocrit 30.2 % (42.0-52.0); Hemoglobin 9.3 g/dL (11.7-16.6); Lymphocytes # 1.4 10^3/uL (0.8-4.8); Mean Corpuscular HGB Conc 30.8 g/dL (30.0-36.0); Mean Corpuscular Volume 87.8 fl (80-94); Mean Platelet Volume 8.7 fL (7.4-10.4); Monocytes # 0.6 10^3/uL (0.2-0.9); Monocytes % 9.2 %; Neutrophils # 3.82 10^3/uL (1.8-7.7); Neutrophils % 64.1 %; Nucleated Red Blood Cells % 0 %; Platelet Count 403 10^3/cmm (130-400); Red Blood Count 3.44 10^6/uL (4.1-5.3); Red Cell Distribution Width 15.6 % (12.1-15.1)
[2022-08-24 09:56] VITALS: BMI 42.0
[2022-08-24 10:18] LABS: Alanine Aminotransferase 16 U/L (0-41); Albumin Level 3.6 g/dL (3.5-5.2); Alkaline Phosphatase 87 U/L (40-130); Anion Gap 18.5 (5-19); Aspartate Amino Transferase 19 U/L (0-40); Blood Urea Nitrogen 13 mg/dL (6-20); Calcium 9.3 mg/dL (8.5-10.5); Carbon Dioxide 23 mmol/L (22-29); Chloride 99 mmol/L (98-107); Globulin 3.1 g/dL (1.3-4.6); Glomerular Filtration Rate 77.9 mL/min (90-130); Glucose 108 mg/dL (65-115); Lactate Dehydrogenase 826 U/L (135-225); Osmolality Calculated 285 mOsm/kg (285-295); Potassium 3.5 mmol/L (3.5-5.1); Sodium 137 mmol/L (136-145); Thyroid Stimulating Hormone 3.61 uIU/mL (0.27-4.20); Total Bilirubin 0.5 mg/dL (0.15-1.2); Total Protein 6.7 g/dL (6.6-8.7)
--- NOTE | 2022-08-28 13:47 | N.ONRAD NP_ITS ---
Radiation Oncology Consultation Patient Name: Boby Padron Date of : 1965 Date of Service: 08/28/2022 Attending Physician: Edy Bailey M.D. Boby Padron was seen in consultation this afternoon at the request of Marquis Caro M.D. for evaluation regarding cranial radiotherapy for the management of metastatic melanoma. He was referred to the [facility] Emergency Department in May of 2022 by his primary care physician for dyspnea and an elevated D-dimer. A CT angiogram of the chest identified a 2.8 cm x 2.2 cm right lower lobe mass, multiple right pulmonary nodules, as well as hilar and mediastinal lymphadenopathy. A bronchoscopy with endobronchial ultrasound-guided biopsy was performed by Irma Hinton M.D. on May 30, 2022. Biopsies obtained from lymph node station 7 were strongly for SOX-10 and S100 consistent with metastatic BRAF V600 mutation negative melanoma. A PET scan ordered on June 10, 2022 confirmed metabolic activity within an apical right lung lesion, right lower lobe mass, hilum, mediastinum, bilateral hepatic lobes, celiac and portal lymphadenopathy, and osseous disease in the right femur and right humerus. An MRI of the brain completed on June 30, 2022 described a 1.4 cm x 0.7 cm x 1 cm metastatic lesion in the mesial left temporal lobe abutting the cavernous sinus. He was prescribed dual immunotherapy (nivolumab/relatlimab) between the dates of June 29, 2022 through July 27, 2022 (2 cycles). A repeat MRI of the brain obtained on August 15, 2022 (independently reviewed in [facility]) reported an increase in size of the left temporal lobe mass measuring 3.1 cm x 2.2 cm x 2.2 cm that was associated with mass-effect upon the left temporal horn and left midbrain. I reviewed with the patient the role of radiotherapy in the management of cranial metastases. Treatment options include stereotactic radiosurgery or whole-brain radiotherapy. Potential toxicities of SRS and WBRT were reviewed. Giving consideration of the location of the mass and the proximity to the cavernous sinus, I will refer the patient to [facility] in [place], [place] for stereotactic radiosurgery. The patient verbalized understanding and would like to proceed as recommended. His medical plan was discussed with Marquis Caro M.D. Signed by: Dr. Edy Bailey 08/28/2022 1:47:54 PM
== END 2022-09-19 23:59 | disposition home or self-care (01) ==
PROVIDERS: PCP Internal Medicine; Visit Provider Internal Medicine Medical Oncology
DX: C43.9 Malignant melanoma of skin, unspecified (principal); R53.83 Other fatigue
CPT/HCPCS: 36591; 80053; 83615; 84443; 85025

== ENCOUNTER 2022-10-12 09:31 | Oncology outpatient (recurring) (ONCR) | payer OTHER, SELFPAY ==
[2022-09-27 10:44] LABS: Basophils % 0.2 %; Eosinophils # 0.1 10^3/uL (0.0-0.8); Eosinophils % 0.8 %; Hemoglobin 12.2 g/dL (11.7-16.6); Lymphocytes # 2.2 10^3/uL (0.8-4.8); Lymphocytes % 19.9 %; Mean Corpuscular HGB Conc 30.5 g/dL (30.0-36.0); Mean Corpuscular Hemoglobin 27.6 pg (28.0-34.0); Mean Corpuscular Volume 90.5 fl (80-94); Mean Platelet Volume 8.2 fL (7.4-10.4); Monocytes % 8.7 %; Neutrophils # 7.81 10^3/uL (1.8-7.7); Neutrophils % 69.2 %; Nucleated Red Blood Cells % 0 %; Platelet Count 224 10^3/cmm (130-400); Red Blood Count 4.42 10^6/uL (4.1-5.3); Red Cell Distribution Width 18.1 % (12.1-15.1); White Blood Count 11.3 10^3/uL (4.0-10.0)
[2022-09-27 11:13] LABS: Alanine Aminotransferase 41 U/L (0-41); Albumin Level 3.5 g/dL (3.5-5.2); Alkaline Phosphatase 148 U/L (40-130); Anion Gap 13.8 (5-19); Aspartate Amino Transferase 22 U/L (0-40); Blood Urea Nitrogen 19 mg/dL (6-20); Calcium 8.4 mg/dL (8.5-10.5); Carbon Dioxide 27 mmol/L (22-29); Chloride 100 mmol/L (98-107); Globulin 2.2 g/dL (1.3-4.6); Glomerular Filtration Rate 87.9 mL/min (90-130); Glucose 101 mg/dL (65-115); Immunoglobulin IGG 581 mg/dL (700-1600); Osmolality Calculated 286 mOsm/kg (285-295); Potassium 3.8 mmol/L (3.5-5.1); Sodium 137 mmol/L (136-145); Thyroid Stimulating Hormone 2.56 uIU/mL (0.27-4.20); Total Bilirubin 0.6 mg/dL (0.15-1.2); Total Protein 5.7 g/dL (6.6-8.7)
[2022-09-27 11:42] LABS: Hepatitis A Antibody IgM Non-Reactive (Nonreactive); Hepatitis B Core AB, Total Non-Reactive (Nonreactive); Hepatitis B Surface AB 3.5 (11.5-1000); Hepatitis B Surface Antigen Non-Reactive (Nonreactive); Hepatitis C Virus Antibody Non-Reactive (Nonreactive)
[2022-10-12 10:08] LABS: Basophils % 0.2 %; Hemoglobin 12.8 g/dL (11.7-16.6); Lymphocytes # 1.5 10^3/uL (0.8-4.8); Lymphocytes % 8.8 %; Mean Corpuscular HGB Conc 31.2 g/dL (30.0-36.0); Mean Corpuscular Hemoglobin 27.9 pg (28.0-34.0); Mean Corpuscular Volume 89.5 fl (80-94); Mean Platelet Volume 8.8 fL (7.4-10.4); Neutrophils # 13.99 10^3/uL (1.8-7.7); Nucleated Red Blood Cells % 0 %; Platelet Count 307 10^3/cmm (130-400); Red Blood Count 4.58 10^6/uL (4.1-5.3); Red Cell Distribution Width 16.9 % (12.1-15.1); White Blood Count 17.3 10^3/uL (4.0-10.0)
[2022-10-12 10:49] LABS: Alanine Aminotransferase 50 U/L (0-41); Albumin Level 3.2 g/dL (3.5-5.2); Alkaline Phosphatase 149 U/L (40-130); Anion Gap 16.9 (5-19); Aspartate Amino Transferase 23 U/L (0-40); Blood Urea Nitrogen 24 mg/dL (6-20); Calcium 9.1 mg/dL (8.5-10.5); Carbon Dioxide 25 mmol/L (22-29); Chloride 101 mmol/L (98-107); Globulin 2.6 g/dL (1.3-4.6); Glomerular Filtration Rate 100.7 mL/min (90-130); Glucose 144 mg/dL (65-115); Osmolality Calculated 295 mOsm/kg (285-295); Potassium 3.9 mmol/L (3.5-5.1); Sodium 139 mmol/L (136-145); Thyroid Stimulating Hormone 0.88 uIU/mL (0.27-4.20); Total Bilirubin 0.5 mg/dL (0.15-1.2); Total Protein 5.8 g/dL (6.6-8.7)
[2022-10-12] MEDS: famotidine 20 mg/2 mL INJ IVP (11:48)
[2022-10-12] MEDS: sodium chloride 0.9% 250 ML 100 ML IV (11:48)
[2022-10-12] MEDS: acetaminophen 325 mg Tablet 650 MG PO (11:48)
[2022-10-12] MEDS: diphenhydrAMINE 50 mg/mL SDV 1mL IVP (11:48)
[2022-10-12] MEDS: dexamethasone 20 MG in sodium chloride 0.9% 50 ML 188 MG IV (11:55)
[2022-10-12] MEDS: SODIUM CHLORIDE 0.9% IV (12:11)
[2022-10-12] MEDS: NIVOLUMAB IV (12:11)
[2022-10-12 15:24] VITALS: BP 138/92; PULSE 86; TEMP 36.6; O2SAT 97
== END 2022-10-17 23:59 | disposition home or self-care (01) ==
PROVIDERS: PCP Internal Medicine; Visit Provider Internal Medicine Medical Oncology
DX: Z51.12 Encounter for antineoplastic immunotherapy; C43.8 Malignant melanoma of overlapping sites of skin; C77.8 Secondary and unspecified malignant neoplasm of lymph nodes of multiple regions; C78.01 Secondary malignant neoplasm of right lung; C78.02 Secondary malignant neoplasm of left lung; C78.7 Secondary malignant neoplasm of liver and intrahepatic bile duct; C79.51 Secondary malignant neoplasm of bone; C79.31 Secondary malignant neoplasm of brain; Z79.899 Other long term (current) drug therapy
CPT/HCPCS: 36591; 80053; 82784; 84443; 85025; 86705; 86706; 86709; 86803; 87340; J1100; J1200; J3490; J7050; J9228; J9299

== ENCOUNTER 2022-10-26 13:35 | Oncology outpatient (recurring) (ONCR) | payer OTHER, SELFPAY ==
[2022-10-26 14:25] LABS: Basophils % 0.2 %; Eosinophils % 0.1 %; Hemoglobin 12.6 g/dL (11.7-16.6); Lymphocytes # 1.7 10^3/uL (0.8-4.8); Lymphocytes % 15.6 %; Mean Corpuscular HGB Conc 31.5 g/dL (30.0-36.0); Mean Corpuscular Hemoglobin 28.1 pg (28.0-34.0); Mean Corpuscular Volume 89.1 fl (80-94); Mean Platelet Volume 8.8 fL (7.4-10.4); Monocytes # 0.5 10^3/uL (0.2-0.9); Monocytes % 4.5 %; Neutrophils # 8.54 10^3/uL (1.8-7.7); Neutrophils % 77.6 %; Nucleated Red Blood Cells % 0 %; Platelet Count 164 10^3/cmm (130-400); Red Blood Count 4.49 10^6/uL (4.1-5.3); Red Cell Distribution Width 17.6 % (12.1-15.1)
[2022-10-26 14:50] LABS: Alanine Aminotransferase 44 U/L (0-41); Alkaline Phosphatase 165 U/L (40-130); Anion Gap 16.7 (5-19); Aspartate Amino Transferase 20 U/L (0-40); Blood Urea Nitrogen 23 mg/dL (6-20); Calcium 8.8 mg/dL (8.5-10.5); Carbon Dioxide 22 mmol/L (22-29); Chloride 105 mmol/L (98-107); Glomerular Filtration Rate 87.6 mL/min (90-130); Glucose 155 mg/dL (65-115); Osmolality Calculated 297 mOsm/kg (285-295); Potassium 3.7 mmol/L (3.5-5.1); Sodium 140 mmol/L (136-145); Thyroid Stimulating Hormone 0.76 uIU/mL (0.27-4.20); Total Bilirubin 0.6 mg/dL (0.15-1.2)
== END 2022-11-01 23:59 | disposition home or self-care (01) ==
LOC: ONCMED 13:35
PROVIDERS: PCP Internal Medicine; Visit Provider Internal Medicine Medical Oncology
DX: C43.8 Malignant melanoma of overlapping sites of skin; Z79.899 Other long term (current) drug therapy; R53.83 Other fatigue
CPT/HCPCS: 36591; 80053; 84443; 85025

== ENCOUNTER 2022-10-26 16:16 | Emergency (ER) | payer OTHER, SELFPAY ==
[2022-10-26 16:22] VITALS: BP 140/93; PULSE 96; RESP 20; TEMP 36.3; O2SAT 95
--- NOTE | 2022-10-26 16:27 | W.ED.SOB ---
HPI - SOB/Dyspnea General: Chief Complaint: Shortness of Breath/Dyspnea Stated Complaint: SOB, High HR Time Seen by Provider: 10/26/22 16:18 History of Present Illness: HPI Narrative: Mr. Padron is a 57-year-old with significant history of metastatic melanoma. He reports 1 to 2-week history of increasing gradual shortness of breath. Mild cough and generalized malaise. He has noticed some swelling. Symptoms have progressed from relatively mild and only with exertion to now constant with even minimal exertion. Intensity of symptoms is severe. No history of lung disease or smoking. No other specific changes in health, exacerbating, or alleviating factors identified. Onset (ago): day(s) Timing: progressively worsening Severity: severe Exacerbating factors: lying flat, exertion, movement and coughing Relieving factors: nothing Known history of: other Associated symptoms: Reports other Review of Systems General: Reports: 10 or more systems reviewed and unremarkable except in HPI and below PFSH ED PFSH: Medical History Bronchitis Degenerative joint disease of spine Hypertension Metastatic melanoma Surgical History History of bronchoscopy (05/30/22) Bronchoscopy/EBUS History of lumbar laminectomy (1996) Family History Father Cancer Lung Lung disease Lung cancer Suicide Sister Cancer Brother Cancer Colon and liver Mother Hyperlipidemia Hypertension Dementia Denies family history of Diabetes CAD (coronary artery disease) Clotting disorder Psychiatric illness Chronic kidney disease (CKD) Anesthesia complication Bleeding disorder Stroke Social History Smoking and tobacco status: never smoked Alcohol intake: never Physical Exam Const: COMMON NORMALS: alert GENERAL APPEARANCE: cooperative and well developed HENMT: COMMON NORMALS: normocephalic and atraumatic HEAD & SCALP: normocephalic and atraumatic Eye: COMMON NORMALS: conjunctivae normal CONJUNCTIVA: Yes conjunctivae normal SCLERA: sclerae normal Neck/C-Spine: COMMON NORMALS: supple GENERAL: Yes trachea midline Resp: EFFORT & INSPECTION: Yes tachypneic AUSCULTATION: diminished lung sounds Cardio: COMMON NORMALS: regular rate and regular rhythm RATE: regular rate RHYTHM: regular rhythm GI: COMMON NORMALS: Soft to palpation PALPATION: Yes Soft to palpation and No Tenderness to palpation present (GI) Extremity: GENERAL: Yes normal exam except as noted and Yes edema Neuro: COMMON NORMALS: moves all extremities SENSORIUM/ORIENTATION: Yes alert and No Orientation impaired Psych: COMMON NORMALS: mental status grossly normal and Normal thought process present THOUGHT PROCESS: Normal thought process present Course Vital Signs: Vital signs: Vital Signs Temperature 97.4 F L 10/26/22 16:22 Pulse Rate 90 10/27/22 12:56 Respiratory Rate 19 H 10/27/22 12:56 Blood Pressure 121/99 10/27/22 12:56 Pulse Oximetry 97 10/27/22 12:56 Oxygen Delivery Me thod 10/27/22 06:37 MDM - SOB/Dyspnea Medical Decision Making 57-year-old gentleman with complex past medical history including metastatic melanoma with lung and brain involvement with history of immunotherapy and brain radiation presenting to the emergency department for progressive shortness of breath. In clinic he was 80% on room air and tachycardic. He notes marked progressive dyspnea on exertion with severe limitation in exertional capacity. At rest patient is satisfactory on room air and mildly tachypneic. EKG shows sinus rhythm with left axis deviation and normal intervals, nonspecific ST segment abnormalities, no STEMI. Labs with mild leukocytosis of 14, normal hemoglobin and platelet count. Metabolic panel with mild decreased bicarb, renal function is preserved, mild elevation in ALT which is improved from prior. Initial troponin 36 with mild increase on repeat to 39.55. BNP is 2183. Viral panel is negative. ABG pH 7.48, PCO2 31.3, PO2 70.4 Chest x-ray with patchy left airspace disease. Given symptoms and underlying medical conditions D-dimer was obtained and markedly elevated. CTA of chest demonstrates saddle pulmonary emboli with significant bilateral clot burden. RV/LV ratio is 1.1. There is patchy groundglass opacities in the left upper lobe concerning for pneumonia. Additional findings related to cancer. I discussed case with pulmonology on-call for the PE response team at [facility] and patient does not qualify for ICU or embolectomy. I discussed the results of ED evaluation with the patient. I discussed risks and benefits of heparin including the uncertainty given patient's underlying medical conditions with metastatic brain cancer that is received radiation. Patient is okay proceeding with heparin. Patient exceeds our level of care and was discussed with the hospitalist. Recommend transfer for higher level of care. Handed off to overnight ED physician Dr. Kaufman for continued ED treatment pending outside bed availability. Medical Records I reviewed the patient's medical records. Lab Data I reviewed the patient's lab results. 10/26/22 17:15 10/26/22 17:15 Labs/Radiology: Radiology Impressions Chest X-Ray 10/26/22 16:32 IMPRESSION: 1. Interval development of patchy left over lobe and more extensive left lingular and left lower lobe airspace disease suspicious for pneumonia. Recommend followup chest imaging to insure resolution of these findings. 2. Stable 3.0 cm right lower lobe pulmonary mass suspicious for a metastatic focus. Additional smaller nodules noted on the prior CT scan are not visualized on the current imaging study. 3. Stable fullness in the right hilar region, likely secondary to hilar adenopathy is noted on the prior CT scan. 4. Incidental/nonacute findings are listed in the report. Chest CTA 10/26/22 18:01 IMPRESSION: 1. Interval development of extensive, bilateral pulmonary emboli. There is a saddle embolus extending into the right and left pulmonary arteries. Nonocclusive embolus extends into the right upper lobe pulmonary artery and left upper lobe/lingular pulmonary arteries, occlusive emboli extend into segmental and subsegmental branches of the right middle pulmonary arteries and occlusive and nonocclusive emboli extending into all segmental and subsegmental branches of the right and left lower lobe pulmonary arteries. 2. Elevated RV/LV ratio raising suspicion for right cardiac strain. 3. Interval development of multiple peripheral ground-glass opacities and airspace disease more extensively in the left upper lobe. Findings may represent a combination of atypical pneumonia, including viral and COVID-19 pneumoni 4. Stable large left-sided fat containing Bochdalek hernia. 5. One right upper lobe nodule has decreased in size, additional nodules are stable. However, findings are overall concerning for worsening metastatic disease with enlargement of a lymphadenopathy, a soft tissue nodule in the anterior left chest, and particularly enlargement of multiple hepatic lesions as well as development of a new lytic lesion in the posterior right 1st rib. Fleischner Society follow up recommendations for incidental nodules are not indicated. Follow up per the patient's medical condition. 6. Incidental/nonacute findings are listed in the report. COMMENTS: THIS REPORT CONTAINS FINDINGS THAT MAY BE CRITICAL TO PATIENT CARE. The findings were verbally communicated via telephone conference with Grayson Viramontes at 9:57 PM CUSTOMER PROJECT MANAGER on 10/26/2022. The findings were acknowledged and understood. Laboratory Results WBC 14.1 10^3/uL (4.0-10.0) H 10/27/22 04:03 RBC 4.33 10^6/uL (4.1-5.3) 10/27/22 04:03 Hgb 12.0 g/dL (11.7-16.6) 10/27/22 04:03 Hct 39.7 % (42.0-52.0) L 10/27/22 04:03 MCV 91.7 fl (80-94) 10/27/22 04:03 MCH 27.7 pg (28.0-34.0) L 10/27/22 04:03 MCHC 30.2 g/dL (30.0-36.0) 10/27/22 04:03 RDW 17.9 % (12.1-15.1) H 10/27/22 04:03 Plt Count 142 10^3/cmm (130-400) 10/27/22 04:03 MPV 8.7 fL (7.4-10.4) 10/27/22 04:03 Neut % (Auto) 62.5 % 10/27/22 04:03 Lymph % (Auto) 26.8 % 10/27/22 04:03 [place] % (Auto) 6.4 % 10/27/22 04:03 Eos % (Auto) 2.5 % 10/27/22 04:03 Baso % (Auto) 0.3 % 10/27/22 04:03 Neut # (Auto) 8.80 10^3/uL (1.8-7.7) H 10/27/22 04:03 Lymph # (Auto) 3.8 10^3/uL (0.8-4.8) 10/27/22 04:03 [place] # (Auto) 0.9 10^3/uL (0.2-0.9) 10/27/22 04:03 Eos # (Auto) 0.4 10^3/uL (0.0-0.8) 10/27/22 04:03 Baso # (Auto) 0.0 10^3/uL (0.0-0.1) 10/27/22 04:03 Nucleated RBC % (auto) 0 % 10/27/22 04:03 Nucleated RBCs # 0.0 /100WBC 10/27/22 04:03 PT 14.10 SECONDS (12.1-14.9) 10/26/22 17:15 INR 1.06 (0.8-1.2) 10/26/22 17:15 APTT 87.8 SECONDS (23.9-36.7) H D 10/27/22 10:00 D-Dimer 12.12 ug/mIFEU (0-0.59) H 10/26/22 17:15 Specimen Type Arterial 10/26/22 17:12 Sample Site Radial, right 10/26/22 17:12 ABG pH 7.48 (7.35-7.45) H 10/26/22 17:12 ABG pCO2 31.3 mmHg (35-45) L 10/26/22 17:12 ABG pO2 70.4 mmHg (80.0-100.0) L 10/26/22 17:12 ABG HCO3 23.3 mmol/L (22-26) 10/26/22 17:12 ABG Base Excess 0.5 mmol/L (-2.0-2.0) 10/26/22 17:12 Ned Test Pos 10/26/22 17:12 Hematocrit 41.7 % (42-52) L 10/26/22 17:12 Hgb O2 Saturation 93.5 % (95-100) L 10/26/22 17:12 Carboxyhemoglobin 1.3 %THgb (0.4-20.1) 10/26/22 17:12 Methemoglobin 0.1 % (0.4-1.5) L 10/26/22 17:12 Total Hemoglobin 13.6 g/dL (14-18) L 10/26/22 17:12 O2 Delivery Device Room air 10/26/22 17:12 FiO2 21.0 % 10/26/22 17:12 Operator [employer] ID glc 10/26/22 17:12 Sodium 140 mmol/L (136-145) 10/27/22 04:03 Potassium 3.6 mmol/L (3.5-5.1) 10/27/22 04:03 Chloride 103 mmol/L (98-107) 10/27/22 04:03 Carbon Dioxide 25 mmol/L (22-29) 10/27/22 04:03 Anion Gap 15.6 (5-19) 10/27/22 04:03 BUN 25 mg/dL (6-20) H 10/27/22 04:03 Creatinine 1.0 mg/dL (0.7-1.2) 10/27/22 04:03 GFR Calculation 77.6 mL/min (90-130) L 10/27/22 04:03 Glucose 95 mg/dL (65-115) 10/27/22 04:03 Calculated Osmolality 294 mOsm/kg (285-295) 10/27/22 04:03 Lactic Acid 2.1 mmol/L (0.5-2.2) 10/26/22 17:15 Lactic Acid (Sepsis) 1.9 mmol/L (0.5-2.2) 10/26/22 19:30 Calcium 9.0 mg/dL (8.5-10.5) 10/27/22 04:03 Magnesium 2.0 mg/dL (1.7-2.3) 10/27/22 04:03 Total Bilirubin 0.8 mg/dL (0.15-1.2) 10/27/22 04:03 AST 18 U/L (0-40) 10/27/22 04:03 ALT 38 U/L (0-41) 10/27/22 04:03 Alkaline Phosphatase 152 U/L (40-130) H 10/27/22 04:03 Troponin T Baseline 36 ng/L (0-15) H 10/26/22 17:15 Troponin T 120 Minute 39.55 ng/L (0-15) H 10/26/22 20:57 Delta Troponin T 3.55 ABS# (0-10) 10/26/22 20:57 Troponin T Hi Sens 6Hr 32.68 ng/L (0-15) H 10/26/22 23:11 Troponin T Hi Sens 6Hr Delta -3.32 ng/L (0-12) L 10/26/22 23:11 NT-Pro-B Natriuret Pep 2183 pg/mL (0-125) H 10/26/22 17:15 Total Protein 5.7 g/dL (6.6-8.7) L 10/27/22 04:03 Albumin 2.9 g/dL (3.5-5.2) L 10/27/22 04:03 Globulin 2.8 g/dL (1.3-4.6) 10/27/22 04:03 Nasal Influ A H1 2009 PCR Not detected (NOT DETECT) 10/26/22 17:15 Adenovirus (PCR) Not detected (NOT DETECT) 10/26/22 17:15 C. pneumoniae DNA (PCR) Not detected (NOT DETECT) 10/26/22 17:15 Coronavirus 229E (PCR) Not detected (NOT DETECT) 10/26/22 17:15 Human Metapneumovir PCR Not detected (NOT DETECT) 10/26/22 17:15 Influenza A (H1) PCR Not detected (NOT DETECT) 10/26/22 17:15 Influenza A (H3) PCR Not detected (NOT DETECT) 10/26/22 17:15 Influenza Type A (PCR) Not detected (NOT DETECT) 10/26/22 17:15 Influenza Type B (PCR) Not detected (NOT DETECT) 10/26/22 17:15 M. pneumoniae (PCR) Not detected (NOT DETECT) 10/26/22 17:15 Parainfluenza 1 (PCR) Not detected (NOT DETECT) 10/26/22 17:15 Parainfluenza 2 (PCR) Not detected (NOT DETECT) 10/26/22 17:15 Parainfluenza 3 (PCR) Not detected (NOT DETECT) 10/26/22 17:15 Parainfluenza 4 (PCR) Not detected (NOT DETECT) 10/26/22 17:15 RSV Type A (PCR) Not detected (NOT DETECT) 10/26/22 17:15 RSV Type B (PCR) Not detected (NOT DETECT) 10/26/22 17:15 Entero/Rhino (PCR) Not detected (NOT DETECT) 10/26/22 17:15 SARS-CoV-2 (PCR) Not detected (NOT DETECT) 10/26/22 17:15 Critical Care Time Critical Care Time: Critical Care Time: Yes Total Critical Care Time: 50 Attestation: Due to a high probability of clinically significant, possibly life threatening deterioration, the patient required my highest level of attention and preparedness to intervene emergently and I personally spent this critical care time directly and personally managing the patient. This critical care time included obtaining a history; examining the patient; pulse oximetry; ordering and review of laboratory and imaging studies; arranging urgent treatment with development of a management plan; evaluation of patient's response to treatment; frequent reassessment; and, discussions with other providers as applicable. It was exclusive of separately billable procedures. Primary system involved is cardiopulmonary. Discharge Plan Discharge Patient Disposition: Xfer Short-Term Hosp Clinical Impression: Acute saddle pulmonary embolism, Multiple pulmonary emboli, Pneumonia Condition: Serious Referrals: Marquis Reeves DO [Primary Care Provider] - Coding Level of Care Code ED Edge B[employer]er for Demetris Johnson
--- NOTE | 2022-10-26 16:32 | XRR_ITS ---
PROCEDURE INFORMATION: Exam: XR Chest Exam date and time: 10/26/2022 4:36 PM Age: 57 years old Clinical indication: Shortness of breath; Additional info: SOB, high heart rate TECHNIQUE: Imaging protocol: Radiologic exam of the chest. Views: 1 view. COMPARISON: CT chest abdpel w/*[id number] 08/10/2022 12:01 PM FINDINGS: Tubes, catheters and devices: Right internal jugular Port-A-Cath with the tip in the superior vena cava. Lungs: Stable 3.0 cm right lower lobe pulmonary mass suspicious for a metastatic focus. Additional smaller nodules noted on the prior CT scan are not visualized on the current imaging study. Interval development of patchy left over lobe and more extensive left lingular and left lower lobe airspace disease suspicious for pneumonia. Pleural spaces: No pleural effusion. No pneumothorax. Heart/Mediastinum: Stable moderate enlargement of the cardiac silhouette. Stable fullness in the right hilar region, likely secondary to hilar adenopathy is noted on the prior CT scan. Bones/joints: Unremarkable for age. XR/XR chest 1V portable [id number] IMPRESSION: 1. Interval development of patchy left over lobe and more extensive left lingular and left lower lobe airspace disease suspicious for pneumonia. Recommend followup chest imaging to insure resolution of these findings. 2. Stable 3.0 cm right lower lobe pulmonary mass suspicious for a metastatic focus. Additional smaller nodules noted on the prior CT scan are not visualized on the current imaging study. 3. Stable fullness in the right hilar region, likely secondary to hilar adenopathy is noted on the prior CT scan. 4. Incidental/nonacute findings are listed in the report.
--- NOTE | 2022-10-26 16:32 | ECG_ITS ---
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 Measurements Intervals [place] Rate: 91 P: 25 DC: 138 QRS: -35 QRSD: 97 T: 21 QT: 376 QTc: 463 Interpretive Statements SINUS RHYTHM LEFT AXIS DEVIATION [QRS AXIS < -30] MODERATE VOLTAGE CRITERIA FOR LVH, CONSIDER NORMAL VARIANT [MEETS CRITERIA IN ONE OF: R(aVL), S(V1), R(V5), R(V5/V6)+S(V1)] POSSIBLE ANTERIOR MYOCARDIAL INFARCTION , OF INDETERMINATE AGE [30 ms Q WAVE IN V3/V4, OR R < 0.2 mV IN V4] No previous ECG available for comparison Electronically Signed On 10-26-2022 23:42:39 SALES DEPARTMENT CLERK by Shayy Brown M.D. [id number]
--- NOTE | 2022-10-26 16:46 | PC.PHAR ---
pt states he takes care of his own medications-pt states he is getting some kind of autoimmunity iv therapy once a month ctc closed -
[2022-10-26 17:19] VITALS: PULSE 92; RESP 18; O2SAT 96
[2022-10-26 17:24] LABS: ABG PCO2 31.3 mmHg (35-45); ABG PH Result 7.48 (7.35-7.45); Arterial Blood Gas Hematocrit 41.7 % (42-52); Base Excess ABG 0.5 mmol/L (-2.0-2.0); Blood Gas Allen Test Pos; Blood Gas Operator Identificat glc; Blood Gas Sample Site Radial, right; Blood Gas Sample Type Arterial; Carboxyhemoglobin 1.3 %THgb (0.4-20.1); HCO3 ABG 23.3 mmol/L (22-26); HGB O2 Sat 93.5 % (95-100); Methemoglobin 0.1 % (0.4-1.5); Oxygen Device ROOM AIR; PO2 ABG 70.4 mmHg (80.0-100.0); Total Hemoglobin 13.6 g/dL (14-18)
[2022-10-26 17:25] LABS: Basophils % 0.3 %; Eosinophils # 0.1 10^3/uL (0.0-0.8); Eosinophils % 0.8 %; Hematocrit 41.2 % (42.0-52.0); Hemoglobin 12.6 g/dL (11.7-16.6); Lymphocytes # 2.7 10^3/uL (0.8-4.8); Lymphocytes % 18.9 %; Mean Corpuscular HGB Conc 30.6 g/dL (30.0-36.0); Mean Corpuscular Hemoglobin 27.8 pg (28.0-34.0); Mean Corpuscular Volume 90.7 fl (80-94); Monocytes # 0.9 10^3/uL (0.2-0.9); Monocytes % 6.1 %; Neutrophils # 10.15 10^3/uL (1.8-7.7); Neutrophils % 72.5 %; Nucleated Red Blood Cells % 0 %; Platelet Count 168 10^3/cmm (130-400); Red Blood Count 4.54 10^6/uL (4.1-5.3); Red Cell Distribution Width 17.9 % (12.1-15.1)
[2022-10-26] MEDS: cefepime 2,000 MG in sodium chloride 0.9% (plus) 50 ML 100 MG IV (17:46)
[2022-10-26 17:48] LABS: Lactic Sepsis W/Reflex 2.1 mmol/L (0.5-2.2)
[2022-10-26 17:57] LABS: Troponin(5th) Baseline 36 ng/L (0-15)
[2022-10-26 18:00] LABS: D Dimer 12.12 ug/mIFEU (0-0.59)
--- NOTE | 2022-10-26 18:01 | CTR_ITS ---
PROCEDURE INFORMATION: Exam: CTA Chest With Contrast Exam date and time: 10/26/2022 9:19 PM Age: 57 years old Clinical indication: Abnormal findings; Abnormal diagnostic tests; Elevated d-dimer; Shortness of breath; Prior surgery; Surgery type: Chest port; Patient HX: SOB with d dimer of 12.12. History of metastatic melanoma and lung cancer. ; Additional info: SOB, CA, elevated ddimer TECHNIQUE: Imaging protocol: Computed tomographic angiography of the chest with contrast. 3D rendering (Not supervised by radiologist): MIP and/or 3D reconstructed images were created by the technologist. Radiation optimization: All CT scans at this facility use at least one of these dose optimization techniques: automated exposure control; mA and/or kV adjustment per patient size (includes targeted exams where dose is matched to clinical indication); or iterative reconstruction. Contrast material: OMNI 350; Contrast volume: 54 ml; Contrast route: INTRAVENOUS (IV); REPORTING DATA: Count of CT and Cardiac NM exams in prior 12 months: This patient has received 3 known CTs and 0 known cardiac nuclear medicine studies in the 12 months prior to the current study. COMPARISON: CT angio chest PE protcl [id number] 05/25/2022 9:13 PM RADIATION DOSE METRICS: Total DLP (mGy-cm): 634.15 FINDINGS: Tubes, catheters and devices: Right internal jugular Port-A-Cath with the tip at the cavoatrial junction. Pulmonary arteries: Interval development of extensive, bilateral pulmonary emboli. There is a saddle embolus extending into the right and left pulmonary arteries. Nonocclusive embolus extends into the right upper lobe pulmonary artery and left upper lobe/lingular pulmonary arteries, occlusive emboli extend into segmental and subsegmental branches of the right middle pulmonary arteries and occlusive and nonocclusive emboli extending into all segmental and subsegmental branches of the right and left lower lobe pulmonary arteries. Aorta: No evidence for aortic aneurysm or aortic dissection. Trachea: Tracheobronchial structures are patent. Lungs: Interval development of multiple peripheral ground-glass opacities and airspace disease more extensively in the left upper lobe. a is and pulmonary infarcts. Recommend followup chest imaging to insure resolution of these findings. A right upper lobe nodule has decreased in size. This now measures 5.0 x 4.6 mm, previously measured 7.5 x 7.6 mm (series 9, image 23). A right lower lobe nodule is stable measuring 1.9 x 2.8 cm (series 9, image 41). A smaller nodule in the medial right upper lobe has increased in size. This now measures 5.8 x 5.4 mm, previously measured 2.1 mm. There is a new nodule in the lateral right middle lobe measuring 5.4 x 5.4 mm (series 9, image 31). Pleural spaces: No pneumothorax. No pleural effusion. Heart: Stable mild enlargement of the heart. Heart RV/LV ratio: The RV/LV ratio is 1.1, previously was 0.9. Esophagus: The esophagus is unremarkable. Mediastinal space: No mediastinal hematoma. No pneumomediastinum. Lymph nodes: Partially visualized lymph node in the upper abdomen now measures 4.9 x 4.6 cm, previously measured 2.4 x 2.4 cm (series 11, image 461). Enlarged right hilar lymph nodes, the largest now measures 2.2 cm in short axis, previously measured 1.7 cm (series 11, image 209). Enlarged subcarinal lymph nodes, the largest now measures 2.7 cm in short axis, unchanged (series 11, image 209). Diaphragm: Stable large left-sided fat containing Bochdalek hernia. Liver: Multiple low-density lesions in the visualized liver. Several have significantly increased in size. The largest now measures 6.6 x 5.6 cm, previously measured 3.2 x 3.3 cm (series 11, image 384). Gallbladder and bile ducts: No dilatation of the visualized bile ducts. Spleen: The visualized spleen is unremarkable. Adrenal glands: The visualized right and left adrenal glands are unremarkable. Kidneys and ureters: The visualized left kidney is unremarkable. Bones/joints: Degenerative changes in the spine and shoulders. No lytic or sclerotic bony lesions. Soft tissues: No acute abnormality in the extrathoracic soft tissues. Soft tissue nodule in the lower left chest now measures 1.4 x 1.7 cm, previously measured 7.2 x 9.7 mm (series 11, image 337). CT/CT angio chest PE protcl [id number] IMPRESSION: 1. Interval development of extensive, bilateral pulmonary emboli. There is a saddle embolus extending into the right and left pulmonary arteries. Nonocclusive embolus extends into the right upper lobe pulmonary artery and left upper lobe/lingular pulmonary arteries, occlusive emboli extend into segmental and subsegmental branches of the right middle pulmonary arteries and occlusive and nonocclusive emboli extending into all segmental and subsegmental branches of the right and left lower lobe pulmonary arteries. 2. Elevated RV/LV ratio raising suspicion for right cardiac strain. 3. Interval development of multiple peripheral ground-glass opacities and airspace disease more extensively in the left upper lobe. Findings may represent a combination of atypical pneumonia, including viral and COVID-19 pneumoni 4. Stable large left-sided fat containing Bochdalek hernia. 5. One right upper lobe nodule has decreased in size, additional nodules are stable. However, findings are overall concerning for worsening metastatic disease with enlargement of a lymphadenopathy, a soft tissue nodule in the anterior left chest, and particularly enlargement of multiple hepatic lesions as well as development of a new lytic lesion in the posterior right 1st rib. Fleischner Society follow up recommendations for incidental nodules are not indicated. Follow up per the patient's medical condition. 6. Incidental/nonacute findings are listed in the report. COMMENTS: THIS REPORT CONTAINS FINDINGS THAT MAY BE CRITICAL TO PATIENT CARE. The findings were verbally communicated via telephone conference with Grayson Viramontes at 9:57 PM DIRECTOR OF MANUFACTURING OPERATIONS on 10/26/2022. The findings were acknowledged and understood.
[2022-10-26 18:07] LABS: Alanine Aminotransferase 42 U/L (0-41); Alkaline Phosphatase 165 U/L (40-130); Anion Gap 17.8 (5-19); Aspartate Amino Transferase 20 U/L (0-40); Blood Urea Nitrogen 25 mg/dL (6-20); Calcium 9.1 mg/dL (8.5-10.5); Carbon Dioxide 21 mmol/L (22-29); Chloride 107 mmol/L (98-107); Glomerular Filtration Rate 87.6 mL/min (90-130); Glucose 110 mg/dL (65-115); NT Pro B Type Natriuretic Pept 2183 pg/mL (0-125); Osmolality Calculated 299 mOsm/kg (285-295); Potassium 3.8 mmol/L (3.5-5.1); Sodium 142 mmol/L (136-145); Total Bilirubin 0.6 mg/dL (0.15-1.2)
[2022-10-26 19:07] VITALS: O2SAT 96
[2022-10-26 19:08] LABS: Reflex Lactate Order REFLEX LACTIC ORDERD
[2022-10-26 19:25] LABS: Adenovirus Not Detected (NOT DETECT); Chlamydia Pneumoniae Not Detected (NOT DETECT); Coronavirus 229E,HKU1,NL63,OC4 Not Detected (NOT DETECT); Human Metapneumovirus Not Detected (NOT DETECT); Human Rhinovirus/Enterovirus Not Detected (NOT DETECT); Influenza A Not Detected (NOT DETECT); Influenza A H1 Not Detected (NOT DETECT); Influenza A H1-2009 Not Detected (NOT DETECT); Influenza A H3 Not Detected (NOT DETECT); Influenza B Not Detected (NOT DETECT); Mycoplasma Pneumoniae Not Detected (NOT DETECT); Parainfluenza Virus Type 1 Not Detected (NOT DETECT); Parainfluenza Virus Type 2 Not Detected (NOT DETECT); Parainfluenza Virus Type 3 Not Detected (NOT DETECT); Parainfluenza Virus Type 4 Not Detected (NOT DETECT); Respiratory Syncytial Virus A Not Detected (NOT DETECT); Respiratory Syncytial Virus B Not Detected (NOT DETECT); SARS-COV-2 Not Detected (NOT DETECT)
[2022-10-26 20:05] LABS: Lactic Acid level (Lactate) 1.9 mmol/L (0.5-2.2)
--- NOTE | 2022-10-26 20:48 | ECG_ITS ---
[facility] Test Date: 2022-10-26 Pat Name: Boby Padron Department: Room: Gender: Male International Student Counselor: : 1965 Requested By: Grayson Savage Order Number: [id number] Alton MD: Missael Rashid M.D. Measurements Intervals [place] Rate: 83 P: 21 LA: 143 QRS: -34 QRSD: 89 T: 16 QT: 391 QTc: 461 Interpretive Statements SINUS RHYTHM LEFT AXIS DEVIATION [QRS AXIS < -30] MODERATE VOLTAGE CRITERIA FOR LVH, CONSIDER NORMAL VARIANT [MEETS CRITERIA IN ONE OF: R(aVL), S(V1), R(V5), R(V5/V6)+S(V1)] POSSIBLE ANTERIOR MYOCARDIAL INFARCTION , OF INDETERMINATE AGE [30 ms Q WAVE IN V3/V4, OR R < 0.2 mV IN V4] Compared to ECG 10/26/2022 17:00:41 No significant changes Electronically Signed On 10-27-2022 15:16:45 HEAD BANQUET WAITER/WAITRESS by Missael Rashid M.D. [id number]
[2022-10-26] MEDS: iohexol 350 mg/mL 500 mL Btl (per mL) IV (21:21)
[2022-10-26 21:23] LABS: Troponin 5 2HR 39.55 ng/L (0-15)
[2022-10-26 21:27] LABS: Troponin 5 2HR Delta 3.55 ABS# (0-10)
[2022-10-26 21:46] VITALS: BP 144/101; PULSE 88; RESP 20; O2SAT 96
[2022-10-26 21:57] LABS: INR 1.06 (0.8-1.2)
[2022-10-26 21:59] VITALS: BP 132/92
[2022-10-26 22:27] LABS: Partial Thromboplastin Time 31.7 SECONDS (23.9-36.7)
[2022-10-26] MEDS: heparin 5,000 unit/mL INJ 1 mL IV (22:36)
[2022-10-26] MEDS: heparin drip 25,000 UNIT/500 ML PREMIX 41.53 UNIT IV (22:50)
--- NOTE | 2022-10-26 22:57 | PC.NURSE ---
Report from TOR Coronel. No needs at this time. Pt reports feeling better currently.
[2022-10-26 22:58] VITALS: BP 131/93; PULSE 85; RESP 16; O2SAT 95
[2022-10-26 23:40] LABS: Troponin 5 6HR 32.68 ng/L (0-15)
[2022-10-26 23:42] LABS: Troponin 5 6HR Delta -3.32 ng/L (0-12)
[2022-10-27] VITALS (10 sets, daily range): BP systolic 97–145; BP diastolic 69–104; PULSE 76–90; RESP 12–23; O2SAT 93–97
--- NOTE | 2022-10-27 03:24 | PC.NURSE ---
Pt moved from room 4 to room 14 and placed on hospital bed for comfort.
[2022-10-27 04:10] LABS: Basophils % 0.3 %; Eosinophils # 0.4 10^3/uL (0.0-0.8); Eosinophils % 2.5 %; Hematocrit 39.7 % (42.0-52.0); Lymphocytes # 3.8 10^3/uL (0.8-4.8); Lymphocytes % 26.8 %; Mean Corpuscular HGB Conc 30.2 g/dL (30.0-36.0); Mean Corpuscular Hemoglobin 27.7 pg (28.0-34.0); Mean Corpuscular Volume 91.7 fl (80-94); Mean Platelet Volume 8.7 fL (7.4-10.4); Monocytes # 0.9 10^3/uL (0.2-0.9); Monocytes % 6.4 %; Neutrophils % 62.5 %; Nucleated Red Blood Cells % 0 %; Platelet Count 142 10^3/cmm (130-400); Red Blood Count 4.33 10^6/uL (4.1-5.3); Red Cell Distribution Width 17.9 % (12.1-15.1); White Blood Count 14.1 10^3/uL (4.0-10.0)
[2022-10-27 04:31] LABS: Alanine Aminotransferase 38 U/L (0-41); Albumin Level 2.9 g/dL (3.5-5.2); Alkaline Phosphatase 152 U/L (40-130); Anion Gap 15.6 (5-19); Aspartate Amino Transferase 18 U/L (0-40); Blood Urea Nitrogen 25 mg/dL (6-20); Carbon Dioxide 25 mmol/L (22-29); Chloride 103 mmol/L (98-107); Globulin 2.8 g/dL (1.3-4.6); Glomerular Filtration Rate 77.6 mL/min (90-130); Glucose 95 mg/dL (65-115); Osmolality Calculated 294 mOsm/kg (285-295); Potassium 3.6 mmol/L (3.5-5.1); Sodium 140 mmol/L (136-145); Total Bilirubin 0.8 mg/dL (0.15-1.2); Total Protein 5.7 g/dL (6.6-8.7)
[2022-10-27 05:15] LABS: Partial Thromboplastin Time 224.3 SECONDS (23.9-36.7)
--- NOTE | 2022-10-27 05:20 | PC.NURSE ---
Critical Value of PTT 224.3 taken from lab. Reported to Dr. Kaufman, per Heparin drip protocol. Order to decrease drip by 6 units. Dose calculated at 8units/kg/hr. 1200u/hr at 24ml/hr. Oct
[2022-10-27] MEDS: cefepime 2,000 MG in sodium chloride 0.9% (plus) 50 ML 100 MG IV (05:26)
[2022-10-27 10:34] LABS: Partial Thromboplastin Time 87.8 SECONDS (23.9-36.7)
== END 2022-10-27 13:55 | disposition short-term general hospital (02) ==
PROVIDERS: Emergency Provider Emergency Medicine; PCP Internal Medicine
DX: I26.92 Saddle embolus of pulmonary artery without acute cor pulmonale (principal); J18.9 Pneumonia, unspecified organism; Z20.822 Contact with and (suspected) exposure to COVID-19; I10 Essential (primary) hypertension; Z85.820 Personal history of malignant melanoma of skin
CPT/HCPCS: 36415; 36600; 71045; 71275; 80053; 82805; 83605; 83735; 83880; 84484; 85025; 85378; 85610; 85730; 87486; 87581; 87633; 93005; 96365; 96366; 96367; 96375; 99291; J0692; J1644; Q9967